=== PATIENT | male | born 1940 | race Caucasian/White ===

== ENCOUNTER 2023-04-13 16:26 | Emergency (ER) | payer MEDICARE, SELFPAY ==
[2023-04-13] VITALS (32 sets, daily range): BP systolic 93–127; BP diastolic 56–94; PULSE 61–95; RESP 10–20; TEMP 36.3–36.7; O2SAT 93–100
--- NOTE | ~2023-04-13 | CT_ITS ---
EXAMINATION: CT abdomen pelvis wo con DATE: 04/13/2023 17:50 INDICATION: DIARRHEA TECHNIQUE: Computed tomography (CT) of the abdomen and pelvis was performed without intravenous contr ast. Automated exposure control and iterative reconstruction technique were employed. The dose-length product was 367.32 mGy-cm. COMPARISON: None. FINDINGS: Lower thorax: Coronary artery calcifications. Senescent changes in the lungs with mild bilateral basi lar scar/atelectasis. Coronary artery calcifications. Liver: Normal. Biliary/Gallbladder: Cholelithiasis. The gallbladder is contracted. No inflammatory change. No bile d uct dilation. Pancreas: Pancreatic atrophy. Spleen: Normal. Adrenals:No mass. Kidneys: Multiple bilateral simple appearing renal cyst measuring up to 5.1 cm in the right midpole. No suspicious mass or obstructing calcification. Left renal atrophy. GI tract: Multiple loops of proximal and mid small bowel dilation in the upper and mid abdomen, with the mesenteric swirl sign (best seen in the coronal images), the suggestion of transition points in t he mid abdomen, with surrounding inflammatory change and possible interloop fluid. No pneumatosis. Ad ditionally multiple loops of dilated small bowel and nondilated large bowel are present within a larg e left inguinal hernia which is incompletely imaged. The appendix is not confidently visualized. Mesentery/Peritoneum: No ascites, mass, or free air. Retroperitoneum: No mass. Atherosclerotic abdominal aortic and/or arterial calcifications. Pelvis: Asymmetric bladder wall thickening. Prostatomegaly. Soft Tissues: Large left inguinal hernia containing dilated small bowel loops of mildly dilated large bowel loops and considerable mesenteric fat. Small right inguinal hernia containing fat and fluid. Bones: No acute osseous finding. IMPRESSION: Small bowel obstruction involving the proximal and mid small bowel with findings suggestive of small bowel volvulus and a C-loop-type obstruction. Large left inguinal hernia containing dilated loops of small bowel and nondilated loops of large kaden l, incompletely included in the [id number]. Associated incarceration/obstruction at this location is not excluded. Asymmetric bladder wall thickening, consider referral for nonemergent urology referral. Reviewed, dictated and finalized at location [facility] IMPRESSION: Small bowel obstruction involving the proximal and mid small bowel with finding s suggestive of small bowel volvulus and a C-loop-type obstruction. Large left inguinal hernia containing dilated loops of small bowel and nondilat ed loops of large bowel, incompletely included in the [id number]. Associated incarceration/obstruction at this location is not excluded. Asymmetric bladder wall thickening, consider referral for nonemergent urology haley corrigan.
--- NOTE | 2023-04-13 16:34 | ED.GENADULT ---
HPI - General Adult General Chief complaint: Nausea/Vomiting/Diarrhea Stated complaint: constipation Time Seen by Provider: 04/13/23 16:32 History of Present Illness HPI narrative: 82YO MAN PRESENTS WITH NEW LOW ABDOMINAL PAIN, LLQ, FOR THE PAST FEW WEEKS, WITH WATERY DIARRHEA. NO BLEEDING. NO VOMITING. Related Data Home Medications Medication Instructions Recorded Confirmed metoprolol tartrate 50 mg tablet 50 mg PO BID 04/25/21 04/13/23 indomethacin 50 mg capsule 50 mg PO BID 04/13/23 04/13/23 lisinopril 40 mg tablet 40 mg PO DAILY 04/13/23 04/13/23 triamterene 75 1 tablet PO DAILY 04/13/23 04/13/23 mg-hydrochlorothiazide 50 mg tablet Allergies Allergy/AdvReac Type Severity Reaction Status Date / Time codeine Allergy Intermediate Dizziness Verified 04/13/23 16:36 Review of Systems Review of Systems: All systems reviewed & are unremarkable except as noted in HPI and below Constitutional: Constitutional: Denies chills and Denies fever(s) ENT: Denies dysphagia Cardiovascular: Cardiovascular: Denies chest pain Respiratory: Respiratory: Denies dyspnea PMFSH Past Medical History Medical History Hypertension Stroke Surgical History Surgical History Hx of tonsillectomy Family History Family History Father Hypertension Son Autism Social History Social History Smoking status: Former smoker Alcohol intake: former Living arrangements: with family Occupation/Education: retired Exam Const: General: healthy appearing Nutritional Appearance: well nourished Eyes: Conjunctivae: conjunctivae normal Resp: Effort & Inspection: normal respiratory effort Auscultation: clear to auscultation bilaterally Cardio: Rate: regular rate Rhythm: regular rhythm Heart sounds: no murmurs GI: Inspection: non-distended GI Palp: Yes Soft to palpation and Yes Tenderness to palpation present (GI) Other: MODERATE SUPRAPUBIC AND BLQ TENDERNESS Skin: General skin exam: normal color, no jaundice and no pallor Course Course Emergency Course: 1840: Talking with [facility] access line who are asking about level of care - pt needs nephrology for renal failure and tele floor bed, probable surgical consultation for enteritis and ileus v partial bowel obstruction. No emergent indication for hemodialysis. Access line considering ICU and will call us back. In the meantime, we are hydrating pt, starting bicarb drip and covering for sepsis. Hb 7 but no sign of active bleeding so will defer transfusion to serial H/H. 1850: Accepted by Dr. Rodriguez to ICU, awaiting bed number. Vital Signs Vital signs: Vital Signs Temperature 36.3 C L 04/13/23 16:28 Pulse Rate 61 04/13/23 16:28 Respiratory Rate 18 04/13/23 16:28 Blood Pressure 118/94 H 04/13/23 16:28 Pulse Oximetry 93 04/13/23 16:28 Oxygen Delivery Room Air 04/13/23 16:28 Temperature 36.3 C L 04/13/23 16:28 Pulse Rate 61 04/13/23 16:28 Respiratory Rate 18 04/13/23 16:28 Blood Pressure 118/94 H 04/13/23 16:28 Pulse Oximetry 93 04/13/23 16:28 Oxygen Delivery Room Air 04/13/23 16:28 Medical Decision Making MDM Narrative Medical decision making narrative: ACUTE BLQ PAIN AND TENDERNESS WITH DIARRHEA DDX ENTERITIS, COLITIS, DIVERTICULITIS, MALIGNANCY Vital Signs Vital Signs: Vital Signs Temperature 36.3 C L 04/13/23 16:28 Pulse Rate 61 04/13/23 16:28 Respiratory Rate 18 04/13/23 16:28 Blood Pressure 118/94 H 04/13/23 16:28 Pulse Oximetry 93 04/13/23 16:28 Oxygen Delivery Room Air 04/13/23 16:28 Temperature 36.3 C L 04/13/23 16:28 Pulse Rate 61 04/13/23 16:28 Respiratory Rate 18 04/13/23 16:28 Blood Pressure 118/94 H 04/13/23 16:28
[2023-04-13 16:53] LABS: Basophils Absolute Auto 0.03 K/mm3 (0.00-0.10); Basophils Percent Auto 0.2 % (0.0-1.0); Eosinophils Absolute Auto 0.08 K/mm3 (0.02-0.50); Eosinophils Percent Auto 0.4 % (1.0-6.0); Hematocrit 23.3 % (37.0-46.0); Immature Granulocyte Absolute 0.47 K/mm3 (0.00-0.00); Immature Granulocyte Percent A 2.6 % (0.0-0.0); Immature Platelet Fraction Pct 0.7 % (1.0-7.0); Lymphocytes Absolute Auto 0.97 K/mm3 (1.10-4.50); Lymphocytes Percent Auto 5.4 % (18.0-42.0); Mean Corpuscular Hemoglobin 19.4 pg (27.0-31.0); Mean Corpuscular Volume 64.7 fL (78.0-102.0); Mean Platelet Volume 8.6 fl (8.7-11.0); Neutrophils Absolute Auto 15.5 K/mm3 (1.7-7.2); Neutrophils Percent Auto 86.4 % (50.0-70.0); Platelet Count Result 734 K/mm3 (150-420); Red Cell Distribution Width 22.1 % (11.6-14.4)
[2023-04-13] MEDS: SODIUM CHLORIDE 0.9% IV 1,000 ML 999 ML IV CONT ×2 (16:57→18:06)
[2023-04-13] MEDS: diphenhydrAMINE HCl INJ 50 MG/ML VIAL 25 MG IV PUSH (17:01)
[2023-04-13] MEDS: KETOROLAC 30 MG/ML VIAL (*BKC) IV PUSH (17:03)
[2023-04-13 17:04] LABS: Magnesium 2.2 mg/dL (1.8-2.4)
[2023-04-13 17:06] LABS: Alanine Aminotransferase 44 U/L (16-63); Anion Gap 19 mmol/L (8-16); Aspartate Amino Transferase 33 U/L (15-37); Bilirubin,Total 0.4 mg/dL (0.00-1.00); Blood Urea Nitrogen 1 mg/dL (7-18); Carbon Dioxide 17 mmol/L (21-32); Chloride 101 mmol/L (98-108); Estimated CRCL calculation 5 ml/min; Estimated Glomerular Filt Rate 6; Potassium 4.2 mmol/L (3.5-5.1); Sodium 137 mmol/L (136-145)
[2023-04-13 17:11] LABS: Lactic Acid Reflex 1.6 mmol/L (0.4-2.0)
[2023-04-13 17:22] LABS: Glucose 125 mg/dL (70-99); Osmolality Calculated 280 mOsm/kg (285-295)
[2023-04-13 17:24] LABS: Albumin Level 2.4 g/dL (3.4-5.0); Alkaline Phosphatase 98 U/L (46-116); Total Protein 7.1 g/dL (6.4-8.2)
[2023-04-13] MEDS: FAMOTIDINE 20 MG/2 ML VIAL 40 MG IV PUSH (18:06)
[2023-04-13] MEDS: PIPERACILLIN/TAZ 4.5G/NS 100ML 4.5 GM/100 ML BAG IVPB (18:08)
[2023-04-13] MEDS: SODIUM BICARBONATE 8.4% 150 MEQ in DEXTROSE 5% 1,000 ML 950 ML 50 MEQ IV CONT (18:59)
[2023-04-13] MEDS: SODIUM BICARBONATE 8.4% 50 MEQ/50 ML SYRINGE IV PUSH (19:00)
--- NOTE | 2023-04-13 19:15 | PC.NURSE ---
BSSR received from TRAE Ruiz. Patient resting on stretcher with IVF infusing. friend at bedside, SURINDER Byrd providing patient update.
--- NOTE | 2023-04-13 19:48 | PC.NURSE ---
belongings list completed, patient friend remains at bedside patient awake and alert, speaking on phone with his sister, who states she will come up tomorrow from [facility].
--- NOTE | 2023-04-20 14:21 | PC.NURSE ---
final blood culture reports x2 reviewed. no growth after 5 days. no change in plan of care.
== END 2023-04-13 21:40 | disposition short-term general hospital (02) ==
PROVIDERS: Emergency Provider Emergency Medicine; PCP Internal Medicine
DX: A41.9 Sepsis, unspecified organism (principal); R10.31 Right lower quadrant pain; R10.32 Left lower quadrant pain; E86.0 Dehydration; K56.600 Partial intestinal obstruction, unspecified as to cause; K40.90 Unilateral inguinal hernia, without obstruction or gangrene, not specified as recurrent; I10 Essential (primary) hypertension; Z86.73 Personal history of transient ischemic attack (TIA), and cerebral infarction without residual deficits; Z87.891 Personal history of nicotine dependence; Z79.899 Other long term (current) drug therapy
CPT/HCPCS: 36415; 74176; 80053; 83605; 83735; 85025; 85055; 87040; 96361; 96365; 96375; 96376; 99285; J1100; J1200; J1885; J2543; J7030; J7070

== ENCOUNTER 2023-05-04 14:51 | Outpatient (CLI) | payer MEDICARE, SELFPAY ==
[2023-05-04 15:13] LABS: Basophils Absolute Auto 0.07 K/mm3 (0.00-0.10); Basophils Percent Auto 0.8 % (0.0-1.0); Eosinophils Percent Auto 3.4 % (1.0-6.0); Hematocrit 34.5 % (37.0-46.0); Hemoglobin 10.3 g/dL (12.4-15.3); Immature Granulocyte Absolute 0.06 K/mm3 (0.00-0.00); Immature Granulocyte Percent A 0.7 % (0.0-0.0); Lymphocytes Absolute Auto 1.39 K/mm3 (1.10-4.50); Lymphocytes Percent Auto 15.9 % (18.0-42.0); Mean Corpuscular HGB Conc 29.9 g/dL (32.0-36.0); Mean Corpuscular Hemoglobin 24.1 pg (27.0-31.0); Mean Corpuscular Volume 80.6 fL (78.0-102.0); Mean Platelet Volume 9.1 fl (8.7-11.0); Monocytes Absolute Auto 0.58 K/mm3 (0.10-0.90); Monocytes Percent Auto 6.6 % (2.0-11.0); Neutrophils Absolute Auto 6.3 K/mm3 (1.7-7.2); Neutrophils Percent Auto 72.6 % (50.0-70.0); Platelet Count Result 398 K/mm3 (150-420); Red Blood Count 4.28 M/mm3 (4.70-6.10); Red Cell Distribution Width 28.1 % (11.6-14.4); White Blood Count 8.7 K/mm3 (4.8-10.8)
[2023-05-04 16:00] LABS: Alanine Aminotransferase 17 U/L (16-63); Albumin Level 2.4 g/dL (3.4-5.0); Alkaline Phosphatase 70 U/L (46-116); Anion Gap 8 mmol/L (8-16); Aspartate Amino Transferase 17 U/L (15-37); Bilirubin,Total 0.4 mg/dL (0.00-1.00); Blood Urea Nitrogen 21 mg/dL (7-18); Calcium 8.6 mg/dL (8.5-10.1); Carbon Dioxide 30 mmol/L (21-32); Chloride 104 mmol/L (98-108); Estimated Glomerular Filt Rate 18; Free T3 2.01 pg/mL (2.18-3.98); Free T4 Free Thyroxine 1.18 ng/dL (0.76-1.46); Glucose 133 mg/dL (70-99); Osmolality Calculated 299 mOsm/kg (285-295); Potassium 4.2 mmol/L (3.5-5.1); Prostate Specific Antigen 2.9 ng/mL (< OR = 4.0); Sodium 142 mmol/L (136-145); Thyroid Stimulating Hormone 10.05 uIU/mL (0.36-3.74)
== END 2023-05-04 14:52 | disposition home or self-care (01) ==
PROVIDERS: PCP Internal Medicine; Visit Provider Internal Medicine
DX: D64.9 Anemia, unspecified (principal); N17.9 Acute kidney failure, unspecified; R97.20 Elevated prostate specific antigen [PSA]
CPT/HCPCS: 36415; 80053; 84153; 84439; 84443; 84481; 85025

== ENCOUNTER 2023-05-07 10:41 | Outpatient (CLI) | payer MEDICARE, SELFPAY ==
--- NOTE | 2023-05-07 10:53 | ECG_ITS ---
Measurements Intervals [place] Rate: 103 P: 109 NC: 183 QRS: -6 QRSD: 92 T: 151 QT: 381 QTc: 500 Interpretive Statements SINUS TACHYCARDIA ATRIAL COUPLETS AND FREQUENT VENTRICULAR PREMATURE COMPLEXES INFERIOR INFARCT, AGE INDETERMINATE LEFT VENTRICULAR HYPERTROPHY WITH ST-T CHANGE ST-T WAVE ABNORMALITY IN ANTEROLATERAL LEADS- CONSIDER ISCHEMIA BASELINE ARTIFACT- III, V4-V6 ABNORMAL ECG NO PREVIOUS ECG AVAILABLE FOR COMPARISON Electronically Signed On 05-07-2023 13:07:25 HEALTHCARE TECHNICIAN by Haroldo Tapia D.O.
[2023-05-07 10:57] LABS: Appearance Urine Clear (Clear); Bilirubin Urine Negative (Negative); Blood Urine Trace-Intact (Negative); Color Urine Yellow (Yellow); Glucose Urine UA Negative (Negative); Ketones Urine Negative (Negative); Leukocyte Esterase Ur 1+ (Negative); Nitrate Urine Negative (Negative); Protein Urine Trace (Negative); Urobilinogen Urine 0.2 mg/dL (0.2-1.0); pH Urine 5.5 (5.0-8.0)
[2023-05-07 11:08] LABS: Add Urine Microscopic? YES; Bacteria Urine Trace /hpf; RBC Urine 0-2 /hpf (0-2); WBC Urine 0-3 /hpf (0-3)
[2023-05-07 11:09] LABS: Budding Yeast Urine Present /hpf
== END 2023-05-07 10:42 | disposition home or self-care (01) ==
LOC: CHSLAB 10:47
PROVIDERS: PCP Internal Medicine; Visit Provider Internal Medicine
DX: D64.9 Anemia, unspecified (principal); N17.9 Acute kidney failure, unspecified; R97.20 Elevated prostate specific antigen [PSA]; R00.0 Tachycardia, unspecified; R94.31 Abnormal electrocardiogram [ECG] [EKG]
CPT/HCPCS: 81001; 93005